=== PATIENT | female | born 1945 | race Caucasian/White ===

== ENCOUNTER 2016-07-26 09:40 | Outpatient (CLI) | payer MEDICARE ==
[2016-07-26 10:28] LABS: #Basophils 0.1 thou/uL (0.0-0.2); #Eosinphils 0.1 thou/uL (0.0-0.7); #Lymphocytes 3.4 thou/uL (1.20-3.40); #Monocytes 0.7 thou/uL (0.11-0.59); #Neutrophils 8.1 thou/uL (1.40-6.50); %Basophils 0.6 % (0.0-1.0); %Eosinophils 0.8 % (0.0-10.0); %Lymphocytes 27.3 % (21.0-51.0); %Monocytes 5.5 % (0.0-10.0); %Neutrophils 65.8 % (42.0-75.0); Hemoglobin 16.6 g/dL (12.0-16.0); Mean Corpuscular HGB CONC 33.4 g/dL (32.0-36.0); Mean Corpuscular Hemoglobin 31.8 pg (27.0-31.0); Mean Corpuscular Volume 95.2 fl (81.0-99.0); Mean Platelet Volume 8.5 fL (7.4-10.4); Platelet Count 274 thou/uL (130-400); RBC Distribution Width 12.6 % (11.5-14.5); Red Blood Cell (RBC) Count 5.22 mill/uL (4.20-5.40); White Blood Cell (WBC) Count 12.3 thou/uL (4.8-10.8)
[2016-07-26 10:37] LABS: ALT (SGPT) 24 U/L (0-55); AST (SGOT) 18 U/L (5-34); Albumin 4.4 g/dL (3.4-4.8); Alkaline Phosphatase 66 U/L (40-150); Amylase 58 U/L (20-160); Anion Gap 14 mmol/L (10-20); BUN (Urea Nitrogen) 19 mg/dL (9.8-20.1); Bilirubin, Total 0.8 mg/dL (0.2-1.2); Calc. Creatinine Clearance 0 mL/min (70-130); Calcium 9.5 mg/dL (7.8-10.44); Carbon Dioxide 28 mmol/L (23-31); Chloride 102 mmol/L (98-107); Estimated GFR-MDRD 44; Globulin 3.1 g/dL (2.4-3.5); Glucose 104 mg/dL (83-110); Lipase 60 U/L (8-78); Potassium 4.7 mmol/L (3.5-5.1); Protein, Total 7.5 g/dL (5.8-8.1); Sodium 139 mmol/L (136-145)
--- NOTE | 2016-07-26 13:18 | ULT ---
ULTRASOUND ABDOMEN HISTORY: Abdominal pain. FINDINGS: The liver demonstrates increased echogenicity without focal mass or intrahepatic ductal dilatation. The gallbladder is suboptimally visualized but demonstrates no definite evidence of shadowing galls tones, gallbladder wall thickening, or pericholecystic fluid. The spleen and pancreas are unremarka ble. There is a 1 cm cyst arising from the superior pole of the right kidney. There is suggestion of minimal to mild hydronephrosis on either side. No free fluid is seen. The visualized portions o f the aorta and IVC are unremarkable. IMPRESSION: 1. Fatty liver. 2. No evidence of cholelithiasis. 3. Right renal cyst. 4. Mild bilateral hydronephrosis. POS: [facility]
== END 2016-07-26 09:41 | disposition home or self-care (01) ==
LOC: NAV ULT 09:40
PROVIDERS: ATTEND Family Medicine
DX: R10.13 Epigastric pain (principal); N28.1 Cyst of kidney, acquired; N13.30 Unspecified hydronephrosis
CPT/HCPCS: 36415; 76700; 80053; 82150; 83690; 85025

== ENCOUNTER 2018-08-14 16:27 | Outpatient (CLI) | payer MEDICARE ==
[2018-08-14 17:37] LABS: Bilirubin Negative (Negative); Blood, Urine Negative (Negative); Clarity Clear (Clear); Glucose, Urine (Dipstick) Negative (Negative); Leukocyte Negative (Negative); Nitrite Negative (Negative); Protein, Urine (Dipstick) Negative (Neg-Trace); Urobilinogen 0.2 mg/dL (0.2-1.0)
[2018-08-14 18:13] LABS: Specific Gravity, Urine Less/Equal 1.005 (1.005-1.030)
== END 2018-08-14 16:28 | disposition home or self-care (01) ==
LOC: NAV LAB 16:27
PROVIDERS: ATTEND Family Medicine
DX: N30.00 Acute cystitis without hematuria (principal)
CPT/HCPCS: 81003; 87086